=== PATIENT | male | born 1990 | race Caucasian/White ===

== ENCOUNTER 2020-05-21 12:27 | Outpatient (REF) | payer OTHER, SELFPAY | END 2020-05-21 12:28 | disposition home or self-care (01) | LOC: HO.LAB 12:27 | PROVIDERS: Visit Provider Internal Medicine | DX: Z20.828 Contact with and (suspected) exposure to other viral communicable diseases (principal) | CPT/HCPCS: 36415; C9803; U0003 ==

== ENCOUNTER 2020-10-17 11:58 | Outpatient (REF) | payer OTHER, SELFPAY ==
--- NOTE | ~2020-10-17 | XR_ITS ---
EXAMINATION: XR LUMBOSACRAL SPINE CLINICAL INFORMATION: Lower back pain. COMPARISON: None TECHNIQUE: Three views of the lumbosacral spine. FINDINGS: The vertebral bodies and posterior elements are normal. The disc spaces are preserved and the vertebral alignment is normal. The paraspinal soft tissues are normal. XR/XR lumbar spine 2-3V IMPRESSION: Unremarkable examination.
--- NOTE | ~2020-10-17 | XR_ITS ---
EXAMINATION: XR KNEE, RIGHT XR KNEE, LEFT CLINICAL INFORMATION: Bilateral knee pain. COMPARISON: None TECHNIQUE: AP, tunnel, lateral, and sunrise views of the right and left knee. FINDINGS: Right knee: No joint space narrowing or marginal osteophytes. No osseous erosion. No fracture or dislocation. No abnormal soft tissue calcification. No significant joint effusion. Left knee: No joint space narrowing or marginal osteophytes. No osseous erosion. No fracture or dislocation. No abnormal soft tissue calcification. No significant joint effusion. XR/XR knee RT 4V IMPRESSION: Right knee: Unremarkable examination. Left knee: Unremarkable examination.
--- NOTE | ~2020-10-17 | XR_ITS ---
EXAMINATION: XR KNEE, RIGHT XR KNEE, LEFT CLINICAL INFORMATION: Bilateral knee pain. COMPARISON: None TECHNIQUE: AP, tunnel, lateral, and sunrise views of the right and left knee. FINDINGS: Right knee: No joint space narrowing or marginal osteophytes. No osseous erosion. No fracture or dislocation. No abnormal soft tissue calcification. No significant joint effusion. Left knee: No joint space narrowing or marginal osteophytes. No osseous erosion. No fracture or dislocation. No abnormal soft tissue calcification. No significant joint effusion. XR/XR knee LT 4V IMPRESSION: Right knee: Unremarkable examination. Left knee: Unremarkable examination.
== END 2020-10-17 11:59 | disposition home or self-care (01) ==
LOC: HO.XRAY 11:58
PROVIDERS: PCP Internal Medicine Geriatric Medicine; Visit Provider Internal Medicine Geriatric Medicine
DX: M54.5 Low back pain (principal); M25.561 Pain in right knee; M25.562 Pain in left knee
CPT/HCPCS: 72100; 73564